=== PATIENT | male | born 1995 | race Hispanic/Latino ===

== ENCOUNTER 2023-11-23 08:38 | Emergency (ER) | payer OTHER, SELFPAY ==
[2023-11-23] MEDS: POLYSPORIN OPHTH OINT 3.5 GM OD ONE (11:17)
[2023-11-23] MEDS: LIDOCAINE 2% W/EPINEPHRINE 20ML VIAL **PRES FREE INJ ONE (11:17)
[2023-11-23] MEDS: ceFAZolin SOD 2 GM in IV 1 EA IV ONE (12:07)
[2023-11-23] MEDS: BOOSTRIX VACCINE (TETANUS/DIPHTH/ACEL. PERTUSSIS) 0.5ML SYR IM.IMMUN ONE (12:07)
[2023-11-23 13:37] VITALS: BP 138/94; TEMP 97.8; O2SAT 100
== END 2023-11-23 13:43 | disposition home or self-care (01) ==
LOC: M ED 08:38
DX: S01.111A Laceration without foreign body of right eyelid and periocular area, initial encounter (principal); Y92.9 Unspecified place or not applicable; Y93.9 Activity, unspecified; Y99.0 Civilian activity done for income or pay; Z23 Encounter for immunization
CPT/HCPCS: 13151; 90471; 90715; 96365; 96366; 99284; J0690